=== PATIENT | female | born 1980 | race Caucasian/White ===

== ENCOUNTER 2018-05-04 19:00 | Emergency (ER) | payer OTHER, MEDICAID, SELFPAY ==
[2018-05-04 19:08] VITALS: BP 145/92; PULSE 82; RESP 14; TEMP 36.7; O2SAT 93; BMI 21.7
--- NOTE | 2018-05-04 20:31 | ED.SKABFB ---
HPI - Skin/Abscess/Foreign Bdy <BREA Falk - Last Filed: 05/04/18 22:32> General Chief complaint: Skin/Abscess/Foreign Body Stated complaint: SKIN IRRITATION/ RASH ALL OVER HEAD AND FACE Time Seen by Provider: 05/04/18 20:31 History of Present Illness HPI narrative: 37-year-old female here for complaint of having rash to the bilateral sides of her face for the last couple of days. She denies any fevers or chills. Denies any trauma to the area. She denies any gamble to the area. She denies any changes in medications and no changes in had gene or chemical use. She reports that the area does not itch reports that it does have a slight audit discomfort to it. She denies any other areas were she has symptoms. No other concerns or complaints at this time MD complaint: rash Related Data Home Medications Medication Instructions Recorded Confirmed olanzapine #0 11/28/16 valproic acid [Depakene] #0 11/28/16 Previous Rx's Medication Instructions Recorded sulfamethoxazole-trimethoprim 1 tab PO BID 5 Days #0 tab 11/27/16 clindamycin HCl 300 mg PO Q6H 7 Days #0 cap 12/29/16 clindamycin HCl 300 mg PO QID #28 cap 05/04/18 mupirocin 1 applictn TOP TID #22 gram 05/04/18 Allergies Allergy/AdvReac Type Severity Reaction Status Date / Time No Known Drug Allergies Allergy Verified 05/04/18 19:11 Review of Systems <BREA Falk - Last Filed: 05/04/18 22:32> Constitutional Denies chills, Denies fever(s), Denies lethargy and Denies weakness Eyes Denies change in vision, Denies eye discharge, Denies irritation and Denies loss of vision ENT Ears, Nose, Mouth, and Throat: Denies change in voice, Denies neck pain and Denies sore throat Cardiovascular Denies chest pain, Denies irregular heart rhythm, Denies lightheadedness, Denies palpitations, Denies dyspnea, Denies dyspnea on exertion and Denies orthopnea Respiratory Denies cough, Denies dyspnea, Denies dyspnea on exertion and Denies wheezing Gastrointestinal Gastrointestinal: Denies abdominal pain, Denies change in bowel habits, Denies diarrhea, Denies nausea and Denies vomiting Genitourinary Denies hematuria, Denies flank pain, Denies urinary incontinence and Denies urinary urgency Musculoskeletal Denies neck pain Integumentary/Breasts Reports rash Neurologic Denies confusion, Denies loss of vision and Denies weakness Psychiatric Denies anxiety, Denies confusion, Denies depression, Denies homicidal ideation and Denies suicidal ideation Endocrine Denies palpitations Allergic/Immunologic Denies wheezing Exam <BREA Falk - Last Filed: 05/04/18 22:32> Initial Vital Signs Initial Vital Signs: Vital Signs Temperature 98.0 F 05/04/18 19:08 Pulse Rate 82 05/04/18 19:08 Respiratory Rate 14 05/04/18 19:08 Blood Pressure 145/92 H 05/04/18 19:08 Pulse Oximetry 93 05/04/18 19:08 Const General: cooperative and well developed Nutritional Appearance: well nourished Orientation: alert, awake, oriented x3 and not confused HENMT Mouth: oral mucosae normal and moist mucous membranes Eyes Conjunctivae: conjunctivae normal Sclera: sclerae normal Pupils: PERRL EOM: EOM intact bilaterally Resp Effort & Inspection: normal respiratory effort, able to speak in complete sentences, no respiratory distress and no use of accessory muscles Auscultation: clear to auscultation bilaterally, no rales, no rhonchi and no wheezes Cardio Rate: regular rate Rhythm: regular rhythm Heart Sounds: no click, no gallops, no murmurs and no rubs Skin Other: Erythematous areas of skin with yellowish discoloration to the bilateral side of the face from the ear to the cheek bone down along the mandible. Rash area appears to be moist. Nicolsky sign negative <Yomi Ness MD - Last Filed: 05/07/18 05:41> Initial Vital Signs Initial Vital Signs: Vital Signs Temperature 98.0 F 05/04/18 19:08 Pulse Rate 82 05/04/18 19:08 Respiratory Rate 14 05/04/18 19:08 Blood Pressure 145/92 H 05/04/18 19:08 Pulse Oximetry 93 05/04/18 19:08 Course <BREA Falk - Last Filed: 05/04/18 22:32> Orders Ordered: Discontinued Medications Clindamycin HCl (Cleocin) 300 mg PO NOW ONE Stop: 05/04/18 21:13 Last Admin: 05/04/18 21:20 Dose: 300 mg Mupirocin (Bactroban Oint) 1 applic TOP BID [facility] Last Admin: 05/04/18 21:25 Dose: 1 applictn Vital Signs - 8 hr 05/04/18 19:08 05/04/18 21:52 Temperature 98.0 F 98.8 F Pulse Rate 82 114 H Respiratory Rate 14 20 Blood Pressure 145/92 H 144/91 H Pulse Oximetry 93 100 <Yomi Ness MD - Last Filed: 05/07/18 05:41> Orders Ordered: Discontinued Medications Clindamycin HCl (Cleocin) 300 mg PO NOW ONE Stop: 05/04/18 21:13 Last Admin: 05/04/18 21:20 Dose: 300 mg Mupirocin (Bactroban Oint) 1 applic TOP BID [facility] Last Admin: 05/04/18 21:25 Dose: 1 applictn Vital Signs - 8 hr 05/04/18 19:08 05/04/18 21:52 Temperature 98.0 F 98.8 F Pulse Rate 82 114 H Respiratory Rate 14 20 Blood Pressure 145/92 H 144/91 H Pulse Oximetry 93 100 MDM - Skin/Abscess/Foreign Bdy <BREA Falk - Last Filed: 05/04/18 22:32> MDM Narrative Medical decision making narrative: On exam needle fatima are seen into a bilateral arms indicating IV drug use concerning for increased chance of infection. Rash to her face with differential between burn either chemical or thermal that patient denies happened verses impetigo or staphylococcal scalded skin. She is prescribed clindamycin and mupirocin topically. [id number] Tylenol as needed for any discomfort. She is instructed to follow up in the emergency room tomorrow evening for re-evaluation to ensure effectiveness of the antibiotics. For any worsening symptoms she is encouraged to return to the emergency room sooner. Discharge Plan Departure Patient Disposition: Home, Self-Care Clinical Impression: Impetigo Discharge Date/Time: 05/04/18 21:52 Interventions: ED Discharge Assessment Last Done: 05/04/18 21:52 Instructions: DI for Impetigo Activity Restrictions/Additional Instructions: Rash to year face is concerning for infection. The you been placed on oral antibiotic and topical antibiotic use both as directed. Return to the emergency room tomorrow evening for re-evaluation. For any worsening symptoms in the meantime return to the Emergency Room sooner. Use [id number] Tylenol as needed for any discomfort. Prescriptions: New clindamycin HCl 300 mg capsule 300 mg PO QID Qty: 28 RF: 0 mupirocin 2 % ointment 1 applictn TOP TID Qty: 22 RF: 0 No Action sulfamethoxazole-trimethoprim 800 MG/160 MG tablet 1 tab PO BID 5 Days Qty: 0 RF: 0 valproic acid [Depakene] 250 MG capsule Qty: 0 RF: 0 olanzapine 2.5 MG tablet Qty: 0 RF: 0 clindamycin HCl 300 MG capsule 300 mg PO Q6H 7 Days Qty: 0 RF: 0 Referrals: [facility] [Provider Group] <Yomi Ness MD - Last Filed: 05/07/18 05:41> Cosign ED Attending [facility] [place] Attestation: The PA/QUALITY ASSURANCE CALIBRATOR functioned independently for the care of this pt, I was available, but not asked to participate in care. I am unable to determine appropriateness of management without personally examining the pt.
[2018-05-04] MEDS: CLINDAMYCIN 150 MG CAPSULE 300 MG PO (21:20)
[2018-05-04] MEDS: MUPIROCIN OINTMENT 22 GM 1 APPLIC TOP (21:25)
--- NOTE | 2018-05-04 21:50 | PC.NURSE ---
pt has open, weeping rash to bilat ears/face/neck, reports worsening over several days, denies known wound/injury/fever/nauseas/vomiting or other sx
[2018-05-04 21:52] VITALS: BP 144/91; PULSE 114; RESP 20; TEMP 37.1; O2SAT 100
== END 2018-05-04 21:52 | disposition home or self-care (01) ==
PROVIDERS: Emergency Provider Nurse Practitioner Family
DX: L01.00 Impetigo, unspecified (principal)
CPT/HCPCS: 99282; 99283

== ENCOUNTER 2020-06-13 16:50 | Emergency (ER) | payer OTHER, MEDICAID, SELFPAY ==
[2020-06-13 16:55] VITALS: BP 144/92; PULSE 102; RESP 15; TEMP 36.9; O2SAT 96; BMI 28.7
[2020-06-13 17:16] LABS: Add Manual Diff / Slide Review NO; Basophils Absolute Auto 0 /uL (0-100); Basophils Percent Auto 0.5 % (0-2); Eosinophils Absolute Auto 100 /uL (0-450); Eosinophils Percent Auto 1.2 % (2-4); Hemoglobin 13.1 g/dL (12.0-16.0); Lymphocytes Absolute Auto 1500 /uL (1100-4500); Lymphocytes Percent Auto 19.3 % (25-40); Mean Corpuscular HGB Conc 34.5 % (30-36); Mean Corpuscular Volume 101.6 fL (80-100); Monocytes Absolute Auto 800 /uL (0-900); Monocytes Percent Auto 10.1 % (3-14); Neutrophils Absolute Auto 5400 /uL (1500-7000); Neutrophils Percent Auto 68.9 % (50-75); Platelet Count 266 X10^3/uL (150-400); Red Blood Cell Count 3.74 X10^6/uL (4.0-5.2); Red Cell Distribution Width 14.1 % (11.6-14.8); White Blood Cell Count 7.8 X10^3/uL (4.5-11.0)
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
--- NOTE | 2020-06-13 17:18 | PC.NURSE ---
Pt states that she uses meth & heroin. Believes she may have ingested rat poison w/o her knowledge. Pt is pale, warm, dry. She has mulitple track fatima over arms. Small scratches and sores in various stages of healing w/o s/s of infection at this time. States she is taking po fluids well. Given water and encouraged to drink.
[2020-06-13 17:21] LABS: INR 0.9 (0.9-1.3); Prothrombin Time 10.9 SECONDS (10.1-12.7)
[2020-06-13 17:24] LABS: PTT Partial Thromboplastin Tim 31 SECONDS (26.4-36.2)
[2020-06-13 17:28] LABS: Alanine Aminotransferase 44 IU/L (<35); Albumin 4.3 g/dL (3.5-5.0); Albumin Globulin Ratio 1.3 (1.0-2.8); Alkaline Phosphatase 59 U/L (38-126); Aspartate Aminotransferase 55 IU/L (14-36); BUN Creatinine Ratio 13.2 (6-22); Bilirubin Total 0.5 mg/dL (0.2-1.3); Blood Urea Nitrogen 7 mg/dL (7-17); Calcium 10.1 mg/dL (8.4-10.2); Carbon Dioxide 29 mmol/L (22-32); Chloride 101 mmol/L (98-107); Estimated Glomerular Filt Rate > 60.0 mL/min (>60); Globulin 3.3 g/dL (1.7-4.1); Glucose 120 mg/dL (70-100); HEMOLYSIS 43 (0-50); Potassium 3.4 mmol/L (3.4-5.1); Sodium 137 mmol/L (137-145); Total Protein 7.6 g/dL (6.3-8.2)
[2020-06-13 17:36] LABS: UR Morphine/Opiate cutoff 300 Positive (Negative); Ur Creatinine Normal (Normal); Ur Specific Gravity Normal (Normal); Urine Amphetamines Negative (Negative); Urine Barbiturates Negative (Negative); Urine Benzodiazepines Negative (Negative); Urine Cocaine Negative (Negative); Urine MDMA Negative (Negative); Urine Methadone Negative (Negative); Urine Oxycodone Negative (Negative); Urine Phencyclidine Negative (Negative); Urine Tetrahydrocannabinol Negative (Negative); Urine Tricyclic Antidepressant Negative (Negative); Urine pH Normal (Normal)
[2020-06-13 17:37] LABS: Urine Methamphetamines Positive (Negative)
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
[2020-06-13 17:42] LABS: Amorphous Sediment Urine 1+; Bacteria Urine Many (>30); RBC Urine 1-5/HPF (0-5/HPF); Squamous Epithelial Cell Urine 1-5 /HPF (0-5/HPF); WBC Urine 10-30/HPF (0-5/HPF)
[2020-06-13 17:43] LABS: Culture Indicated Urine Specimen Cultured; Mucus Urine 2+ (Negative)
--- NOTE | 2020-06-13 17:50 | CM.SWNOTE ---
ADMINISTRATIVE NURSING SUPERVISOR assessment ADMINISTRATIVE NURSING SUPERVISOR - Signal Helper Assessment ADMINISTRATIVE NURSING SUPERVISOR - Signal Helper Assessment Start: 06/13/20 17:40 Freq: Status: Active Protocol: Document 06/13/20 17:40 BRYANNA (Rec: 06/13/20 17:50 BRYANNA [id number]) ADMINISTRATIVE NURSING SUPERVISOR/Signal Helper Assessment Time Spent with Patient Start date 06/13/20 Visit Start Time 17:25 End date 06/13/20 Visit End Time 17:40 Total time Care Management spent on 15 patient visit-in minutes Substance Abuse Screening Include Onset, Duration, Intensity Presenting Problem Patient presents to ED stating she had been told that she had been exposed to rabies and rat poison roughly 1 week prior. Patient reports she does not know how it happened and declined to disclose who informed her of this. Precipitating Event(s) n/a Current Behavioral Health Provider(s) None-referrals to [facility] and [facility] Include Facility, Provider, Ph. # [facility] Provided . Family Hx of Behavioral Abuse not assessed Rehab Facilities? ((Date(s), Location(s) not assessed ) History of Withdrawal? Seizures? not assessed Longest Period of Sobriety not assessed Psychosocial Information Patient reports living in [place] and that she does not have access to transportation. Patient reports she currently uses meth and heroin and is comfortable with her current use. Patient declines additional conversation regarding this. Support System(s) not assessed School/Work not assessed Legal Concerns Legal Matters - Outstanding Issues not assessed Mental Status Orientation (Person/Place/Time) oriented x3 Affect Guarded, flat, stable Thought Content - Specify/Describe Patient reports believing that Obsessions, Delusions, Hallucinations she had been exposed to rat poison and rabies, but declines further details. Unable to fully assess during brief assessment. Thought Processes (Klpreod-Mllpryuc-Jwem Goal directed Lpcekylf-Agwrwcas-Nsssmxxvre- Qfnzolxmznvllv-Ghalthi-Lfwnmwqxawqj- Thought Blocking) Speech (Icntxt-Cywo-Alknvkq-Rapid-Soft- normal Loud-Pressured) Motor (Cjyiks-Zjcqqjweo-Nqnk-Other) normal Insight (Present-Partially Present- impaired Impaired) Judgement (Intact-Impaired) unable to fully assess Impulse Control (Adequate-Impaired) unable to fully assess Memory (Mdddbocpd-Xyjand-Cpviyt, immediate and recent intact. Impaired-Intact) Unable to fully assess remote. Concentration (Intact-Impaired) intact Attention (Intact-Impaired) intact. Behavior (Appropriate-Inappropriate) appropriate. Additional Comment Patient was very guarded during interview and informed ADMINISTRATIVE NURSING SUPERVISOR that she would be open to referrals for counseling and a PCP, but stated no other needs outside of rabies labs from ED. Risk Assessment Suicidal Ideation (Plan) No Homicidal Ideation (Plan) No Comment Patient denies any SI/HI. Intervention Intervention ADMINISTRATIVE NURSING SUPERVISOR consult requested for patient. Patient is a 39 y/o female who presents to ED for rabies exposure and vaginal bleeding. Patient reports she was told that she was exposed to rabies and rat poison, declines to identify who told her, but informs ADMINISTRATIVE NURSING SUPERVISOR that she is safe in her home and from this person. ADMINISTRATIVE NURSING SUPERVISOR asks about PCP and patient receptive to referral. When asked about counselor patient initially declines referral but asks for referral to counselor as ADMINISTRATIVE NURSING SUPERVISOR is exiting room. ADMINISTRATIVE NURSING SUPERVISOR gives phone numbers for [facility] and [facility] to provider to put in discharge notes. Plan RA Plan Patient will receive numbers to arrange outpatient healthcare support in discharge packet, and arrange appointments as desired. VIVEK Haro
[2020-06-13 18:24] LABS: Thyroid Stimulating Hormone 1.96 uIU/mL (0.47-4.68)
[2020-06-13] MEDS: cephALEXin 250 MG CAPSULE 500 MG PO (18:28)
[2020-06-13 18:30] VITALS: BP 128/79; PULSE 80; RESP 18; O2SAT 98
== END 2020-06-13 18:38 | disposition home or self-care (01) ==
PROVIDERS: Emergency Provider Nurse Practitioner Family; PCP Family Medicine
DX: F22 Delusional disorders (principal); N39.0 Urinary tract infection, site not specified; F11.10 Opioid abuse, uncomplicated
CPT/HCPCS: 80053; 80305; 81003; 81015; 81025; 84443; 85025; 85610; 85730; 87077; 87086; 87186; 99284

== ENCOUNTER 2020-07-01 10:43 | Emergency (ER) | payer OTHER, MEDICAID, SELFPAY ==
[2020-07-01 10:46] VITALS: BP 141/79; PULSE 104; RESP 16; TEMP 36.9; O2SAT 97; BMI 30.7
--- NOTE | 2020-07-01 10:58 | ED.PSYCH ---
HPI - Psych General Chief Complaint: Psychiatric Symptoms Stated Complaint: Bipolar, Bugs crawling all over Time Seen by Provider: 07/01/20 10:52 Source: patient and EMS Mode of arrival: EMS History of Present Illness HPI Narrative: Patient is a 39-year-old female with history of bipolar, borderline personality disorder, PTSD, substance abuse presenting voluntarily to the ED today with chief complaint of bugs crawling on her and being out of her Seroquel. She states that she typically takes Seroquel 100 mg but has been at for 1 week. She states that she has bugs crawling on her though I do not see any. She denies any history of methamphetamine use or any other drug use but admits to smoking cigarettes. She does appear to be talking to people who are not in the room but she adamantly denies any suicidal or homicidal ideations. She does not think that she needs to be hospitalized at this time. She requested to come to the emergency department for evaluation. Related Data Home Medications Medication Instructions Recorded Confirmed quetiapine [Seroquel] 100 mg PO BEDTIME 06/13/20 06/13/20 Allergies Allergy/AdvReac Type Severity Reaction Status Date / Time No Known Drug Allergies Allergy Verified 06/13/20 17:00 Review of Systems Review of Systems ROS Unobtainable: All systems reviewed & are unremarkable except as noted in HPI and below Cardiovascular Cardiovascular: Denies dyspnea and Denies dyspnea on exertion Respiratory Respiratory: Denies cough, Denies dyspnea, Denies dyspnea on exertion and Denies wheezing Psychiatric Psychiatric: Reports as per HPI Allergic/Immunologic Allergic/Immunologic: Denies wheezing Patient History Social History Smoking Status: Current every day smoker Smoking Status: Current every day smoker alcohol intake frequency: 0-2 drinks per day Substance Use Type: heroin and methamphetamine Exam Initial Vital Signs Initial Vital Signs: Vital Signs Temperature 98.4 F 07/01/20 10:46 Pulse Rate 104 H 07/01/20 10:46 Respiratory Rate 16 07/01/20 10:46 Blood Pressure 141/79 H 07/01/20 10:46 Pulse Oximetry 97 07/01/20 10:46 GENERAL: Actively was fraying under her breath to people who are not here HEENT: Head atraumatic,EOMI, pupils reactive, face symmetric CARDIOVASCULAR: Regular rate and rhythm without murmurs, rubs or gallops. RESPIRATORY: Breath sounds equal bilaterally, no wheezes rales or rhonchi. EXTREMITIES: Normal range of motion, no clubbing or edema. Neurovascularly intact NEUROLOGICAL: Moving all extremities SKIN: Some sores noted on skin. No track fatima no abscesses Psych Appearance: disheveled Speech and Movement: speech and movement normal Mood: congruent mood Affect: normal affect Thought Process: illogical Thought Content: hallucinations Course Orders Ordered: Discontinued Medications Quetiapine Fumarate (Seroquel) 50 mg PO NOW ONE Stop: 07/01/20 10:59 Last Admin: 07/01/20 11:17 Dose: Not Given Documented by: LUX Vital Signs Vital signs: Vital Signs - 8 hr 07/01/20 10:46 Temperature 98.4 F Pulse Rate 104 H Respiratory Rate 16 Blood Pressure 141/79 H Pulse Oximetry 97 MDM - Psych MDM Narrative Medical decision making narrative: Patient has significant history she does appear to be hallucinating but does not appear gravely disabled an adamantly denies suicidal and homicidal ideations. I agreed to give her Seroquel. However she got up and walked out of the emergency department she was found out in the waiting room using the restroom and said she no longer wanted to be seen or evaluated and left. The patient Does not meet criteria for involuntary hospitalization. Patient has the capacity to make decisions. Discharge Plan Departure Patient Disposition: Left Against Medical Advice Clinical Impression: Patient left care setting after refusal of treatment Prescriptions: No Action quetiapine [Seroquel] 100 mg Tablet 100 mg PO BEDTIME RF: 0 Referrals: Jerome Judge DO [Primary Care Provider] - Stand Alone Forms: Against Medical Advice
--- NOTE | 2020-07-01 11:09 | PC.NURSE ---
Registration came into department stating pt walked out of department doors and was walking around the [facility]. No security in building at this time. [employer] and RN looking for patient in [facility].
--- NOTE | 2020-07-01 11:11 | PC.NURSE ---
Security made aware of pt's elopement, Dr Bishop aware.
--- NOTE | 2020-07-01 11:15 | PC.NURSE ---
Pt found in bathroom across from ICU waiting room. States i dont need to be here advised we could provide her with her RX. states no thank you i dont need it and ambulated out of ER entrance doors. Dr Bishop made aware. Advised that pt denied SI/HI and asked to come here voluntarily therefore we could not hold her here involuntarily.
--- NOTE | 2020-07-01 11:17 | PC.NURSE ---
Patient left the ED by herself and went down the monique to the bathroom. The door was unlocked and the room was entered to see the patient washing her hands. She was informed that she could not leave the department and she stated something to the effect of rosalina, I'm leaving. She proceeded to leave the ED. We offered her medication and she declined. We offered to refill her prescription and she declined.
== END 2020-07-01 11:19 | disposition left against medical advice (07) ==
LOC: ED 08-15 10:56
PROVIDERS: Emergency Provider Emergency Medicine; PCP Family Medicine
DX: F45.8 Other somatoform disorders (principal)
CPT/HCPCS: 99281

== ENCOUNTER → 2021-08-30 14:11 | Outpatient (CLI) | payer OTHER, MEDICAID, SELFPAY | PROVIDERS: PCP Family Medicine; Referring Provider Nurse Practitioner; Visit Provider Nurse Practitioner | DX: T14.8XXA Other injury of unspecified body region, initial encounter (principal) | CPT/HCPCS: 87070; 87077; 87147; 87186; 87205 ==

== ENCOUNTER 2021-09-09 11:34 | Emergency (ER) | payer OTHER, MEDICAID, SELFPAY ==
[2021-09-09 11:44] VITALS: BP 146/95; PULSE 101; RESP 16; TEMP 36.4; O2SAT 98; BMI 31.4
[2021-09-09 11:57] VITALS: PULSE 84; O2SAT 98
[2021-09-09 12:00] VITALS: PULSE 84; O2SAT 98
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
[2021-09-09 12:19] LABS: Add Manual Diff / Slide Review NO; Basophils Absolute Auto 100 /uL (0-100); Basophils Percent Auto 1.5 % (0-2); Eosinophils Absolute Auto 100 /uL (0-450); Eosinophils Percent Auto 1.8 % (2-4); Hematocrit 40.9 % (36-46); Hemoglobin 13.9 g/dL (12.0-16.0); Lymphocytes Absolute Auto 2300 /uL (1100-4500); Lymphocytes Percent Auto 34.5 % (25-40); Mean Corpuscular Hemoglobin 32.8 PG (26-34); Mean Corpuscular Volume 96.4 fL (80-100); Monocytes Absolute Auto 300 /uL (0-900); Monocytes Percent Auto 5.1 % (3-14); Neutrophils Absolute Auto 3700 /uL (1500-7000); Neutrophils Percent Auto 57.1 % (50-75); Platelet Count 263 X10^3/uL (150-400); Red Blood Cell Count 4.24 X10^6/uL (4.0-5.2); White Blood Cell Count 6.6 X10^3/uL (4.5-11.0)
[2021-09-09 12:24] LABS: Alanine Aminotransferase 17 IU/L (<35); Albumin 4.4 g/dL (3.5-5.0); Albumin Globulin Ratio 1.4 (1.0-2.8); Alkaline Phosphatase 64 U/L (38-126); Aspartate Aminotransferase 22 IU/L (14-36); BUN Creatinine Ratio 8.8 (6-22); Bilirubin Total 0.4 mg/dL (0.2-1.3); Blood Urea Nitrogen 6 mg/dL (7-17); Calcium 9.3 mg/dL (8.4-10.2); Carbon Dioxide 27 mmol/L (22-32); Chloride 103 mmol/L (98-107); Estimated Glomerular Filt Rate > 60.0 mL/min (>60); Globulin 3.1 g/dL (1.7-4.1); Glucose 133 mg/dL (70-100); HEMOLYSIS < 15 (0-50); Potassium 3.3 mmol/L (3.4-5.1); Sodium 138 mmol/L (137-145); Total Protein 7.5 g/dL (6.3-8.2)
[2021-09-09 12:30] VITALS: PULSE 78; RESP 14; O2SAT 98
[2021-09-09 13:00] VITALS: PULSE 76; RESP 14; O2SAT 98
[2021-09-09] MEDS: SODIUM CHLORIDE 0.9% 1,000 ML 1000 ML IV (13:06)
[2021-09-09 13:08] VITALS: BP 134/82; PULSE 76; RESP 11; O2SAT 100
--- NOTE | 2021-09-09 17:48 | ED_ITS ---
HPI - Wound/Laceration General Chief Complaint: Wound/Laceration Stated Complaint: Bacterial infection post bug bite. vomitting Time Seen by Provider: 09/09/21 12:04 History of Present Illness HPI narrative: 40-year-old female daily smoker with history of IV drug abuse presents with a chief complaint of some itchy and irritated skin on her arms and back. Initially she generally feels a bit unusual and unwell. She vomited once or twice yesterday. She was recently seen and evaluated and thought to have the potential of some infected skin lesions and had been prescribed an antibiotic but is at a pharmacy that has not been open over the weekend. She has not been able to get her antibiotics but states her skin wounds actually seemed to look better. She has no systemic findings such as fever chills. She denies any change in her medications and states she has not missed any doses of her Suboxone. Related Data Home Medications Medication Instructions Recorded Confirmed quetiapine 100 mg tablet (Seroquel) 100 mg PO BEDTIME 06/13/20 08/30/21 Previous Rx's Medication Instructions Recorded mupirocin 2 % topical ointment 1 applic TOPICAL TID #22 g 08/30/21 sulfamethoxazole 800 1 tab PO BID 7 Days #14 tab 09/08/21 mg-trimethoprim 160 mg tablet (Bactrim DS) Allergies Allergy/AdvReac Type Severity Reaction Status Date / Time No Known Drug Allergies Allergy Verified 08/30/21 13:28 Review of Systems Review of Systems Narrative: GENERAL: See HPI HEENT: Denies sinus pain, ear pain, sore throat, difficulty swallowing, dizziness. RESPIRATORY: Denies dyspnea, cough, wheezing, hemoptysis, sputum. CARDIOVASCULAR: Denies chest pain, palpitations, orthopnea, edema, GASTROINTESTINAL: See HPI : Denies dysuria, frequency, incontinence, hematuria, urinary retention. MUSCULOSKELETAL: denies weakness, joint pain, or bony pain SKIN: See HPI r NEUROLOGIC: Denies weakness, headache, numbness, change in speech, confusion, seizures, incoordination. PSYCHIATRIC: No concerning psychosocial issues. 12 point review of systems is negative except for those stated above Patient History Social History Smoking Status: Current every day smoker Smoking Status: Current every day smoker alcohol intake frequency: 0-2 drinks per day Substance Use Type: heroin and methamphetamine Exam Narrative Exam Narrative: GENERAL: [40 year old patient appears stated age. Well-developed patient, in mild distress. HEAD: Atraumatic. Normocephalic. EYES: Pupils equal round and reactive. Extraocular motions intact. No scleral icterus. No injection or drainage. ENT: Dry mucous membranes Nose without bleeding, purulent drainage. Throat without erythema, tonsillar hypertrophy or exudate. Airway patent. NECK: Trachea midline. Non tender CARDIOVASCULAR: Regular rate and rhythm without murmurs, gallops, or rubs. RESPIRATORY: Clear to auscultation. Breath sounds equal bilaterally. No wheezes, rales, or rhonchi. GASTROINTESTINAL: Abdomen soft, non-tender, nondistended. EXTREMITIES: No edema or joint tenderness. BACK: Nontender without deformity or crepitance. No flank tenderness. NEURO: AOx3. SKIN: Poor skin turgor, few small excoriated lesions on arms and upper back, actually they are healing well with dried scabs, no drainage and no surrounding erythema, induration or fluctuance. No rash or erythema of visible areas Initial Vital Signs Initial Vital Signs: Vital Signs Temperature 97.6 F 09/09/21 11:44 Pulse Rate 101 H 09/09/21 11:44 Respiratory Rate 16 09/09/21 11:44 Blood Pressure 146/95 H 09/09/21 11:44 Pulse Oximetry 98 09/09/21 11:44 Course Orders Ordered: ED Orders 09/09/21 11:46 Complete Blood Count AUTO DIFF Stat Comprehensive Metabolic Panel Stat Discontinued Medications Sodium Chloride (Normal Saline 0.9%) 1,000 mls @ 1,000 mls/hr IV BOLUS ONE Stop: 09/09/21 13:04 Last Infusion: 09/09/21 14:04 Dose: 0 mls/hr Documented by: Admin: 09/09/21 13:06 Dose: 1,000 mls/hr Documented by: LUX Vital Signs Vital signs: Vital Signs - 8 hr 09/09/21 11:44 09/09/21 11:57 09/09/21 12:00 Temperature 97.6 F Pulse Rate 101 H 84 84 Respiratory Rate 16 Blood Pressure 146/95 H Pulse Oximetry 98 98 98 09/09/21 12:30 09/09/21 13:00 09/09/21 13:08 Temperature Pulse Rate 78 76 76 Respiratory Rate 14 14 11 L Blood Pressure 134/82 Pulse Oximetry 98 98 100 MDM - Wound/Laceration Lab Data Result diagrams: 09/09/21 11:46 09/09/21 11:46 Labs: Lab Results 09/09/21 09/09/21 Range/Units 11:46 11:46 WBC 6.6 (4.5-11.0) X10^3/uL RBC 4.24 (4.0-5.2) X10^6/uL Hgb 13.9 (12.0-16.0) g/dL Hct 40.9 (36-46) % MCV 96.4 (80-100) fL MCH 32.8 (26-34) PG MCHC 34.0 (30-36) % RDW 13.0 (11.6-14.8) % Plt Count 263 (150-400) X10^3/uL Neut % (Auto) 57.1 (50-75) % Lymph % (Auto) 34.5 (25-40) % [place] % (Auto) 5.1 (3-14) % Eos % (Auto) 1.8 L (2-4) % Baso % (Auto) 1.5 (0-2) % Neut # (Auto) 3700 (8041-8828) /uL Lymph # (Auto) 2300 (6230-9789) /uL [place] # (Auto) 300 (0-900) /uL Eos # (Auto) 100 (0-450) /uL Baso # (Auto) 100 (0-100) /uL Sodium 138 (137-145) mmol/L Potassium 3.3 L (3.4-5.1) mmol/L Chloride 103 (98-107) mmol/L Carbon Dioxide 27 (22-32) mmol/L BUN 6 L (7-17) mg/dL Creatinine 0.68 (0.52-1.04) mg/dL Estimated GFR > 60.0 (>60) mL/min BUN/Creatinine Ratio 8.8 (6-22) Glucose 133 H (70-100) mg/dL Calcium 9.3 (8.4-10.2) mg/dL Total Bilirubin 0.4 (0.2-1.3) mg/dL AST 22 (14-36) IU/L ALT 17 (<35) IU/L Alkaline Phosphatase 64 (38-126) U/L Total Protein 7.5 (6.3-8.2) g/dL Albumin 4.4 (3.5-5.0) g/dL Globulin 3.1 (1.7-4.1) g/dL Albumin/Globulin Ratio 1.4 (1.0-2.8) MDM Narrative Medical decision making narrative: No indication for antibiotics today or certainly through the IV. She is a bit dehydrated and feels much better after above-stated therapies. Labs are reassuring vital signs have improved and physical exam is actually very reassuring. She has a prescription waiting for her that she can get filled tomorrow. Discharge Plan Departure Patient Disposition: Home Clinical Impression: Bacterial skin infection Fatigue Qualifiers: Fatigue type: unspecified Qualified Code(s): R53.83 - Other fatigue Instructions: DI for Wound Infection Activity Restrictions/Additional Instructions: *You have been diagnosed with [fatigue with a very reassuring physical exam and labs and vitals *What to do: *Please continue to take your regular medications as directed. [ ] New medication prescriptions sent to your pharmacy: [ ] [ ] New medication written as a paper prescription [ x] No new medications given *Please follow up with your primary care provider in 2-3 days, call for an ap pointment. Let them know you were seen in the Emergency Department and that we ask that you be seen in follow up. We will electronically transmit a record of today's note if your PCP is in our system *If you do not have a primary care provider please contact the [facility] Resource line at [phone]. They will ask some questions about your medical history and help get you set up with a doctor in the community. *Return to Emergency Department if you should have any new, worsening or co ncerning symptoms, such as [fever greater than 101 F, shaking chills, worsening pain, persistent vomiting or other bothersome symptoms] Prescriptions: No Action mupirocin 2 % ointment 1 applic topical TID Qty: 22 RF: 0 sulfamethoxazole-trimethoprim [Bactrim DS] 800-160 mg tablet 1 tab PO BID 7 Days Qty: 14 RF: 0 quetiapine [Seroquel] 100 mg Tablet 100 mg PO BEDTIME RF: 0 Referrals: Jerome Judge DO [Primary Care Provider] -
== END 2021-09-09 14:05 | disposition home or self-care (01) ==
PROVIDERS: Emergency Provider Emergency Medicine; PCP Family Medicine
DX: L08.9 Local infection of the skin and subcutaneous tissue, unspecified (principal); R53.83 Other fatigue; E86.0 Dehydration
CPT/HCPCS: 36415; 80053; 81003; 81025; 85025; 96360; 99284

== ENCOUNTER 2021-09-16 12:50 | Emergency (ER) | payer OTHER, MEDICAID, SELFPAY ==
[2021-09-16] VITALS (9 sets, daily range): BP systolic 114–131; BP diastolic 65–78; PULSE 57–81; RESP 18; TEMP 36.4; O2SAT 95–100; BMI 29.7
--- NOTE | 2021-09-16 13:40 | ED_ITS ---
HPI - Nausea/Vomiting/Diarrhea <Juve Herring PA-C - Last Filed: 09/16/21 18:26> General Chief complaint: Nausea/Vomiting/Diarrhea Stated complaint: constipated, throwing up, can't eat Time Seen by Provider: 09/16/21 13:08 Source: patient Mode of arrival: Ambulatory Limitations: no limitations History of Present Illness HPI Narrative: Patient is a 40-year-old female presenting today to the emergency department for an evaluation constipation that began approximately 1 week ago. Patient states that she had 1 hard bowel movement 1 week ago, denying any blood in her stools. Additionally, patient notes that she has had intermittent nausea and non bilious non bloody vomiting for the past 2 and half weeks. She states that she has been unable to ?keep anything down? and she states that the last thing that she ate was a half a cup of yogurt this morning. Of note, patient states that she has been taking a 7 day course of Bactrim that she received from an urgent care facility for a skin infection. She notes that her symptoms began before taking the antibiotics. She denies fever, chills, cough, shortness of breath, chest pain, abdominal pain, dysuria. No prior abdominal surgeries reported. No other concerns voiced at this time. Related Data Home Medications Medication Instructions Recorded Confirmed quetiapine 100 mg tablet (Seroquel) 100 mg PO BEDTIME 06/13/20 08/30/21 Previous Rx's Medication Instructions Recorded mupirocin 2 % topical ointment 1 applic TOPICAL TID #22 g 08/30/21 docusate sodium 100 mg capsule 100 mg PO BID #7 cap 09/16/21 (Colace) ondansetron HCl 4 mg tablet 4 mg PO Q6H PRN #30 tab 09/16/21 (Zofran) Allergies Allergy/AdvReac Type Severity Reaction Status Date / Time No Known Drug Allergies Allergy Verified 08/30/21 13:28 Review of Systems <Juve Herring PA-C - Last Filed: 09/16/21 18:26> Constitutional Constitutional: Denies chills, Denies fever(s), Denies lethargy and Denies weakness ENT Ears, Nose, Mouth, and Throat: Denies change in voice, Denies neck pain and Denies sore throat Cardiovascular Cardiovascular: Denies chest pain, Denies irregular heart rhythm, Denies lightheadedness, Denies palpitations, Denies dyspnea, Denies dyspnea on exertion and Denies orthopnea Respiratory Respiratory: Denies cough, Denies dyspnea, Denies dyspnea on exertion and Denies wheezing Gastrointestinal Gastrointestinal: Denies abdominal pain, Reports constipation, Denies diarrhea, Reports nausea and Reports vomiting Musculoskeletal Musculoskeletal: Denies neck pain Neurologic Neurologic: Denies weakness Endocrine Endocrine: Denies palpitations Allergic/Immunologic Allergic/Immunologic: Denies wheezing Patient History <Juve Herring PA-C - Last Filed: 09/16/21 18:26> Social History Smoking Status: Current every day smoker Smoking Status: Current every day smoker alcohol intake frequency: 0-2 drinks per day Substance Use Type: heroin and methamphetamine Exam <Juve Herring PA-C - Last Filed: 09/16/21 18:26> Narrative Exam Narrative: GENERAL: 40 year old patient appears stated age. Well-developed patient, in mild distress. HEAD: Atraumatic. Normocephalic. EYES: Pupils equal round and reactive. Extraocular motions intact. No scleral icterus. No injection or drainage. ENT: Nose without bleeding, purulent drainage. Throat without erythema, tonsillar hypertrophy or exudate. Airway patent. NECK: Trachea midline. Non tender CARDIOVASCULAR: Regular rate and rhythm without murmurs, gallops, or rubs. RESPIRATORY: Clear to auscultation. Breath sounds equal bilaterally. No wheezes, rales, or rhonchi. GASTROINTESTINAL: Abdomen soft, nondistended. Mild tenderness to palpation noted throughout all 4 quadrants. EXTREMITIES: No edema or joint tenderness. BACK: Nontender without deformity or crepitance. No flank tenderness. NEURO: AOx3. SKIN: No rash or erythema of visible areas Initial Vital Signs Initial Vital Signs: Vital Signs Temperature 97.5 F L 09/16/21 12:55 Pulse Rate 79 09/16/21 12:55 Respiratory Rate 18 09/16/21 12:55 Blood Pressure 131/69 09/16/21 12:55 Pulse Oximetry 96 09/16/21 12:55 <Ashley Bauman DO - Last Filed: 09/20/21 01:45> Initial Vital Signs Initial Vital Signs: Vital Signs Temperature 97.5 F L 10/31/21 12:55 Pulse Rate 79 09/16/21 12:55 Respiratory Rate 18 09/16/21 12:55 Blood Pressure 131/69 09/16/21 12:55 Pulse Oximetry 96 09/16/21 12:55 Course <Juve Herring PA-C - Last Filed: 09/16/21 18:26> Course Course Narrative: Patient is a 40-year-old female presenting today to the emergency department for an evaluation constipation that began approximately 1 week ago. CBC, CMP, KUB, 1 L normal saline ordered. Lipase, lactic acid also ordered. Patient provided Colace in the emergency department. She is able to tolerate p.o. fluids. Orders Ordered: Discontinued Medications Docusate Sodium (Docusate 100 Mg Capsule) 100 mg PO NOW ONE Stop: 09/16/21 14:23 Last Admin: 09/16/21 15:13 Dose: 100 mg Documented by: CELI Sodium Chloride (Normal Saline 0.9%) 1,000 mls @ 1,000 mls/hr IV BOLUS ONE Stop: 09/16/21 14:45 Last Infusion: 09/16/21 15:13 Dose: 0 mls/hr Documented by: Admin: 09/16/21 14:01 Dose: 1,000 mls/hr Documented by: CELI Vital Signs Vital signs: Vital Signs - 8 hr 09/16/21 12:55 09/16/21 12:56 09/16/21 12:57 Temperature 97.5 F L Pulse Rate 79 76 77 Respiratory Rate 18 Blood Pressure 131/69 131/69 Pulse Oximetry 96 97 96 09/16/21 13:00 09/16/21 13:30 09/16/21 14:00 Temperature Pulse Rate 71 64 60 Respiratory Rate Blood Pressure 124/65 117/71 Pulse Oximetry 95 99 99 09/16/21 14:02 09/16/21 14:30 09/16/21 15:36 Temperature Pulse Rate 58 L 81 57 L Respiratory Rate Blood Pressure 114/72 130/78 118/72 Pulse Oximetry 100 100 100 <Ashley Bauman DO - Last Filed: 09/20/21 01:45> Orders Ordered: Discontinued Medications Docusate Sodium (Docusate 100 Mg Capsule) 100 mg PO NOW ONE Stop: 09/16/21 14:23 Last Admin: 09/16/21 15:13 Dose: 100 mg Documented by: CELI Sodium Chloride (Normal Saline 0.9%) 1,000 mls @ 1,000 mls/hr IV BOLUS ONE Stop: 09/16/21 14:45 Last Infusion: 09/16/21 15:13 Dose: 0 mls/hr Documented by: Admin: 09/16/21 14:01 Dose: 1,000 mls/hr Documented by: CELI Vital Signs Vital signs: Vital Signs - 8 hr 09/16/21 12:55 09/16/21 12:56 09/16/21 12:57 Temperature 97.5 F L Pulse Rate 79 76 77 Respiratory Rate 18 Blood Pressure 131/69 131/69 Pulse Oximetry 96 97 96 09/16/21 13:00 09/16/21 13:30 09/16/21 14:00 Temperature Pulse Rate 71 64 60 Respiratory Rate Blood Pressure 124/65 117/71 Pulse Oximetry 95 99 99 09/16/21 14:02 09/16/21 14:30 09/16/21 15:36 Temperature Pulse Rate 58 L 81 57 L Respiratory Rate Blood Pressure 114/72 130/78 118/72 Pulse Oximetry 100 100 100 MDM - Nausea/Vomiting/Diarrhea <Juve Herring PA-C - Last Filed: 09/16/21 18:26> Lab Data Result diagrams: 09/16/21 13:35 09/16/21 13:35 Labs: Lab Results 09/16/21 09/16/21 09/16/21 Range/Units 13:15 13:15 13:35 WBC 4.1 L (4.5-11.0) X10^3/uL RBC 4.21 (4.0-5.2) X10^6/uL Hgb 13.6 (12.0-16.0) g/dL Hct 40.7 (36-46) % MCV 96.8 (80-100) fL MCH 32.3 (26-34) PG MCHC 33.3 (30-36) % RDW 12.8 (11.6-14.8) % Plt Count 232 (150-400) X10^3/uL Neut % (Auto) 49.1 L (50-75) % Lymph % (Auto) 39.8 (25-40) % [place] % (Auto) 8.4 (3-14) % Eos % (Auto) 1.7 L (2-4) % Baso % (Auto) 1.0 (0-2) % Neut # (Auto) 2000 (9354-9463) /uL Lymph # (Auto) 1700 (4468-9399) /uL [place] # (Auto) 300 (0-900) /uL Eos # (Auto) 100 (0-450) /uL Baso # (Auto) 0 (0-100) /uL Sodium (137-145) mmol/L Potassium (3.4-5.1) mmol/L Chloride (98-107) mmol/L Carbon Dioxide (22-32) mmol/L BUN (7-17) mg/dL Creatinine (0.52-1.04) mg/dL Estimated GFR (>60) mL/min BUN/Creatinine Ratio (6-22) Glucose (70-100) mg/dL Lactate (0.7-2.1) mmol/L Calcium (8.4-10.2) mg/dL Total Bilirubin (0.2-1.3) mg/dL AST (14-36) IU/L ALT (<35) IU/L Alkaline Phosphatase (38-126) U/L Total Protein (6.3-8.2) g/dL Albumin (3.5-5.0) g/dL Globulin (1.7-4.1) g/dL Albumin/Globulin Ratio (1.0-2.8) Lipase (23-300) U/L Urine RBC 5-10/hpf H (0-5/HPF) Urine WBC 5-10/hpf H (0-5/HPF) Ur Squamous Epith Cells >30 /hpf H D (0-5/HPF) Urine Bacteria Many (>30) H (None) Ur Culture Indicated? Cult not indicated Urine Test Negative (Negative) 09/16/21 09/16/21 09/16/21 Range/Units 13:35 13:35 13:35 WBC (4.5-11.0) X10^3/uL RBC (4.0-5.2) X10^6/uL Hgb (12.0-16.0) g/dL Hct (36-46) % MCV (80-100) fL MCH (26-34) PG MCHC (30-36) % RDW (11.6-14.8) % Plt Count (150-400) X10^3/uL Neut % (Auto) (50-75) % Lymph % (Auto) (25-40) % [place] % (Auto) (3-14) % Eos % (Auto) (2-4) % Baso % (Auto) (0-2) % Neut # (Auto) (8080-2131) /uL Lymph # (Auto) (7515-9998) /uL [place] # (Auto) (0-900) /uL Eos # (Auto) (0-450) /uL Baso # (Auto) (0-100) /uL Sodium 136 L (137-145) mmol/L Potassium 3.8 (3.4-5.1) mmol/L Chloride 102 (98-107) mmol/L Carbon Dioxide 27 (22-32) mmol/L BUN 7 (7-17) mg/dL Creatinine 0.89 (0.52-1.04) mg/dL Estimated GFR > 60.0 (>60) mL/min BUN/Creatinine Ratio 7.9 (6-22) Glucose 104 H (70-100) mg/dL Lactate 0.9 (0.7-2.1) mmol/L Calcium 9.5 (8.4-10.2) mg/dL Total Bilirubin 0.5 (0.2-1.3) mg/dL AST 28 (14-36) IU/L ALT 19 (<35) IU/L Alkaline Phosphatase 55 (38-126) U/L Total Protein 7.5 (6.3-8.2) g/dL Albumin 4.4 (3.5-5.0) g/dL Globulin 3.1 (1.7-4.1) g/dL Albumin/Globulin Ratio 1.4 (1.0-2.8) Lipase 53 (23-300) U/L Urine RBC (0-5/HPF) Urine WBC (0-5/HPF) Ur Squamous Epith Cells (0-5/HPF) Urine Bacteria (None) Ur Culture Indicated? Urine Test (Negative) Urine Dip Bedside Urine Glucose Negative Bedside Urine Bilirubin - Negative Bedside Urine Ketone +/- 5 Urine Specific [place] 1.025 Bedside Urine Occult Blood +++ Bedside Urine pH 6.0 Bedside Urine Protein + 30 Bedside Urine Urobilinogen - Negative Bedside Urine Nitrite - Negative Bedside Urine Leukocytes - Negative Esterase Imaging Data Abdominal x-ray: Radiologist's Impression: PROCEDURE: XR KUB INDICATIONS: constipation TECHNIQUE: Two views of the abdomen/pelvis were acquired.. COMPARISON: None. FINDINGS: Surgical changes and devices: None. Bowel: Bowel gas pattern is normal. Mild to moderate amount of stools noted within the left colon. Soft tissues: No suspicious abdominal calcifications. Visualized solid organ contours appear normal in size. Lung bases are clear. Bones: No suspicious bony lesions or acute osseous abnormality. IMPRESSION: No acute abnormality. Mild to moderate amount of stool is noted within the left colon. Dictated by: Juan José Katz D.O. on 09/16/2021 at 12:58 Approved by: Juan José Katz D.O. on 09/16/2021 at 13:00 [facility] Narrative Medical decision making narrative: Patient is a 40-year-old female presenting today to the emergency department for an evaluation constipation that began approximately 1 week ago. To consider constipation versus bowel obstruction. Physical examination in patient history reassuring overall, as deep palpation of the abdomen did not elicit significant pain response. Additionally, bowel sounds were active throughout all 4 quadrants of the abdomen with auscultation. X-ray obtained shows mild to moderate amount of stool within the left colon. Discussed with patient the results of her labs and x-ray and at this time she w ould like to be discharged home. Discussed with her strict return precautions prior to discharge. <Ashley Bauman, - Last Filed: 09/20/21 01:45> Lab Data Labs: Lab Results 09/16/21 09/16/21 09/16/21 Range/Units 13:15 13:15 13:35 WBC 4.1 L (4.5-11.0) X10^3/uL RBC 4.21 (4.0-5.2) X10^6/uL Hgb 13.6 (12.0-16.0) g/dL Hct 40.7 (36-46) % MCV 96.8 (80-100) fL MCH 32.3 (26-34) PG MCHC 33.3 (30-36) % RDW 12.8 (11.6-14.8) % Plt Count 232 (150-400) X10^3/uL Neut % (Auto) 49.1 L (50-75) % Lymph % (Auto) 39.8 (25-40) % [place] % (Auto) 8.4 (3-14) % Eos % (Auto) 1.7 L (2-4) % Baso % (Auto) 1.0 (0-2) % Neut # (Auto) 2000 (7055-2370) /uL Lymph # (Auto) 1700 (3477-5298) /uL [place] # (Auto) 300 (0-900) /uL Eos # (Auto) 100 (0-450) /uL Baso # (Auto) 0 (0-100) /uL Sodium (137-145) mmol/L Potassium (3.4-5.1) mmol/L Chloride (98-107) mmol/L Carbon Dioxide (22-32) mmol/L BUN (7-17) mg/dL Creatinine (0.52-1.04) mg/dL Estimated GFR (>60) mL/min BUN/Creatinine Ratio (6-22) Glucose (70-100) mg/dL Lactate (0.7-2.1) mmol/L Calcium (8.4-10.2) mg/dL Total Bilirubin (0.2-1.3) mg/dL AST (14-36) IU/L ALT (<35) IU/L Alkaline Phosphatase (38-126) U/L Total Protein (6.3-8.2) g/dL Albumin (3.5-5.0) g/dL Globulin (1.7-4.1) g/dL Albumin/Globulin Ratio (1.0-2.8) Lipase (23-300) U/L Urine RBC 5-10/hpf H (0-5/HPF) Urine WBC 5-10/hpf H (0-5/HPF) Ur Squamous Epith Cells >30 /hpf H D (0-5/HPF) Urine Bacteria Many (>30) H (None) Ur Culture Indicated? Cult not indicated Urine Test Negative (Negative) 09/16/21 09/16/21 09/16/21 Range/Units 13:35 13:35 13:35 WBC (4.5-11.0) X10^3/uL RBC (4.0-5.2) X10^6/uL Hgb (12.0-16.0) g/dL Hct (36-46) % MCV (80-100) fL MCH (26-34) PG MCHC (30-36) % RDW (11.6-14.8) % Plt Count (150-400) X10^3/uL Neut % (Auto) (50-75) % Lymph % (Auto) (25-40) % [place] % (Auto) (3-14) % Eos % (Auto) (2-4) % Baso % (Auto) (0-2) % Neut # (Auto) (9442-4323) /uL Lymph # (Auto) (7253-1086) /uL [place] # (Auto) (0-900) /uL Eos # (Auto) (0-450) /uL Baso # (Auto) (0-100) /uL Sodium 136 L (137-145) mmol/L Potassium 3.8 (3.4-5.1) mmol/L Chloride 102 (98-107) mmol/L Carbon Dioxide 27 (22-32) mmol/L BUN 7 (7-17) mg/dL Creatinine 0.89 (0.52-1.04) mg/dL Estimated GFR > 60.0 (>60) mL/min BUN/Creatinine Ratio 7.9 (6-22) Glucose 104 H (70-100) mg/dL Lactate 0.9 (0.7-2.1) mmol/L Calcium 9.5 (8.4-10.2) mg/dL Total Bilirubin 0.5 (0.2-1.3) mg/dL AST 28 (14-36) IU/L ALT 19 (<35) IU/L Alkaline Phosphatase 55 (38-126) U/L Total Protein 7.5 (6.3-8.2) g/dL Albumin 4.4 (3.5-5.0) g/dL Globulin 3.1 (1.7-4.1) g/dL Albumin/Globulin Ratio 1.4 (1.0-2.8) Lipase 53 (23-300) U/L Urine RBC (0-5/HPF) Urine WBC (0-5/HPF) Ur Squamous Epith Cells (0-5/HPF) Urine Bacteria (None) Ur Culture Indicated? Urine Test (Negative) Urine Dip Bedside Urine Glucose Negative Bedside Urine Bilirubin - Negative Bedside Urine Ketone +/- 5 Urine Specific [place] 1.025 Bedside Urine Occult Blood +++ Bedside Urine pH 6.0 Bedside Urine Protein + 30 Bedside Urine Urobilinogen - Negative Bedside Urine Nitrite - Negative Bedside Urine Leukocytes - Negative Esterase Discharge Plan Departure Patient Disposition: Home Clinical Impression: Constipation Qualifiers: Constipation type: unspecified constipation type Qualified Code(s): K59.00 - Constipation, unspecified Instructions: DI for Constipation Activity Restrictions/Additional Instructions: *You have been diagnosed with constipation *What to do: *Please continue to take your regular medications as directed. [X] New medication prescriptions sent to your pharmacy: [facility] - Docusate and Zofran [ ] New medication written as a paper prescription [ ] No new medications given *Please follow up with your primary care provider in 2-3 days, call for an appointment. Let them know you were seen in the Emergency Department and that we ask that you be seen in follow up. We will electronically transmit a record of today's note if your PCP is in our system *If you do not have a primary care provider please contact the [facility] Resource line at [phone]. They will ask some questions about your medical history and help get you set up with a doctor in the community. *Return to Emergency Department if you should have any new, worsening or concerning symptoms, such as fever greater than 101 F, shaking chills, worsening abdominal pain, persistent vomiting, blood in stool, or other bothersome symptoms. Prescriptions: New ondansetron HCl [Zofran] 4 mg tablet 4 mg PO Q6H PRN (Reason: nausea and vomiting) Qty: 30 RF: 0 docusate sodium [Colace] 100 mg capsule 100 mg PO BID Qty: 7 RF: 0 No Action mupirocin 2 % ointment 1 applic topical TID Qty: 22 RF: 0 quetiapine [Seroquel] 100 mg Tablet 100 mg PO BEDTIME RF: 0 Referrals: Jerome Judge DO [Primary Care Provider] - <Ashley Bauman DO - Last Filed: 09/20/21 01:45> Cosign ED Attending Reneeature Attestation: I was immediately available in the department for consultation. Documentation has been reviewed. Case was d iscussed with myself. Labs and imaging were also reviewed. Concern for constipation versus bowel obstruction or other potential abdominal process. Patient is tolerating orals here in the department without significant amounts of medications. She has also been feeling constipated with no acute changes on her imaging today. Strict return precautions and if patient continued to have vomiting she does need return for more in-depth evaluation.
[2021-09-16 13:48] LABS: Add Manual Diff / Slide Review NO; Basophils Absolute Auto 0 /uL (0-100); Eosinophils Absolute Auto 100 /uL (0-450); Eosinophils Percent Auto 1.7 % (2-4); Hematocrit 40.7 % (36-46); Hemoglobin 13.6 g/dL (12.0-16.0); Lymphocytes Absolute Auto 1700 /uL (1100-4500); Lymphocytes Percent Auto 39.8 % (25-40); Mean Corpuscular HGB Conc 33.3 % (30-36); Mean Corpuscular Hemoglobin 32.3 PG (26-34); Mean Corpuscular Volume 96.8 fL (80-100); Monocytes Absolute Auto 300 /uL (0-900); Monocytes Percent Auto 8.4 % (3-14); Neutrophils Absolute Auto 2000 /uL (1500-7000); Neutrophils Percent Auto 49.1 % (50-75); Platelet Count 232 X10^3/uL (150-400); Red Blood Cell Count 4.21 X10^6/uL (4.0-5.2); Red Cell Distribution Width 12.8 % (11.6-14.8); White Blood Cell Count 4.1 X10^3/uL (4.5-11.0)
[2021-09-16 13:54] LABS: Alanine Aminotransferase 19 IU/L (<35); Albumin 4.4 g/dL (3.5-5.0); Albumin Globulin Ratio 1.4 (1.0-2.8); Alkaline Phosphatase 55 U/L (38-126); Aspartate Aminotransferase 28 IU/L (14-36); BUN Creatinine Ratio 7.9 (6-22); Bilirubin Total 0.5 mg/dL (0.2-1.3); Blood Urea Nitrogen 7 mg/dL (7-17); Calcium 9.5 mg/dL (8.4-10.2); Carbon Dioxide 27 mmol/L (22-32); Chloride 102 mmol/L (98-107); Estimated Glomerular Filt Rate > 60.0 mL/min (>60); Globulin 3.1 g/dL (1.7-4.1); Glucose 104 mg/dL (70-100); HEMOLYSIS < 15 (0-50); Potassium 3.8 mmol/L (3.4-5.1); Sodium 136 mmol/L (137-145); Total Protein 7.5 g/dL (6.3-8.2)
[2021-09-16 13:59] LABS: Bacteria Urine Many (>30); Culture Indicated Urine Cult Not Indicated; RBC Urine 5-10/HPF (0-5/HPF); Squamous Epithelial Cell Urine >30 /HPF (0-5/HPF); WBC Urine 5-10/HPF (0-5/HPF)
[2021-09-16] MEDS: SODIUM CHLORIDE 0.9% 1,000 ML 1000 ML IV (14:01)
[2021-09-16 14:13] LABS: Pregnancy Test Urine Negative (Negative)
[2021-09-16 14:15] LABS: Lactate (Lactic Acid) 0.9 mmol/L (0.7-2.1)
[2021-09-16] MEDS: DOCUSATE 100 MG CAPSULE PO (15:13)
[2021-09-16 15:27] LABS: Lipase 53 U/L (23-300)
== END 2021-09-16 16:04 | disposition home or self-care (01) ==
PROVIDERS: Emergency Medicine; Emergency Provider Physician Assistant; PCP Family Medicine
DX: K59.00 Constipation, unspecified (principal); R11.2 Nausea with vomiting, unspecified
CPT/HCPCS: 36415; 74018; 80053; 81003; 81015; 81025; 83605; 83690; 85025; 96360; 99284